=== PATIENT | male | born 1980 | race Caucasian/White ===

== ENCOUNTER 2021-01-06 05:58 | Day surgery (SDC) | payer BC ==
[2021-01-06] MEDS: Lactated Ringers 1,000 ML IV SCH ×2 (06:10→10:04)
[2021-01-06] MEDS ORDERED: Lidocaine 1% 4 ML ONE (06:54)
[2021-01-06] MEDS ORDERED: Lactated Ringers 1,000 ML ONE (06:54)
[2021-01-06] MEDS ORDERED: ceFAZolin 1 GM Vial ONE (06:54)
[2021-01-06] MEDS ORDERED: Ondansetron 4 MG/2 ML SDV ONE (06:54)
[2021-01-06] MEDS ORDERED: Propofol 200 MG/20 ML SDV ONE ×2 (06:55→06:59)
[2021-01-06] MEDS ORDERED: Midazolam 1 MG/ML 2 ML SDV ONE (06:55)
[2021-01-06] MEDS ORDERED: Scopolamine 1.5 MG Transdermal Patch TRDERM PRN (06:55)
[2021-01-06] MEDS ORDERED: fentaNYL 250 MCG/5 ML SDV ONE (06:56)
[2021-01-06] MEDS ORDERED: Ketorolac 30 MG/ML SDV ONE (06:56)
[2021-01-06] MEDS ORDERED: Ketamine 500 mg/10 ML MDV ONE (06:56)
[2021-01-06] MEDS ORDERED: Dexamethasone 4 MG/ML 5 ML MDV ONE (06:56)
[2021-01-06] MEDS ORDERED: Sodium Chloride 0.9% 10 ML Syringe FLUSH PRN (07:00)
[2021-01-06] MEDS ORDERED: Lidocaine 1%/Sod Bicarbonate in NS 8.4% 1 ML Syringe IDERM PRN (07:00)
[2021-01-06] MEDS ORDERED: HYDROmorphone 0.5 MG/0.5 ML Syringe ONE ×2 (07:18→07:44)
[2021-01-06] MEDS: Bupivacaine 0.25% 10 ML SDV ONE ×2 (08:07→08:42)
[2021-01-06] MEDS ORDERED: HYDROmorphone 0.5 MG/0.5 ML Syringe IVPUSH PRN (08:23)
[2021-01-06] MEDS ORDERED: fentaNYL 100 MCG/2 ML SDV IVPUSH PRN (08:23)
[2021-01-06] MEDS ORDERED: Ondansetron 4 MG/2 ML SDV IVPUSH PRN (08:23)
--- NOTE | 2021-01-06 08:28 | PCM.PREANE ---
Preanesthetic Assessment - Procedure Proposed Procedure: ORIF right Lateral Tibial Plateau Fracture - Anesthesia/Transfusion/Family Hx Anesthesia History: Prior Anesthesia Without Reaction Family History of Anesthesia Reaction: No - Review of Systems General: No Symptoms Pulmonary: No Symptoms, Other (Borderline sleep apnea, CPAP at home, uses inconsistently. ) Cardiovascular: No Symptoms, Other (Borderline hypertension, using a home journal to track BP. ) Gastrointestinal: No Symptoms Neurological: Dizziness (Motion Sickness ) Other: Reports: Depression, Anxiety (Panic Attacks) - Physical Assessment NPO Status Date: 01/05/21 NPO Status Time: 21:00 Vital Signs: Last Vital Signs Temp 36.2 C 01/06/21 06:05 Pulse 95 01/06/21 06:05 Resp 16 01/06/21 06:05 BP 137/86 01/06/21 06:31 Pulse Ox 95 01/06/21 06:05 Height: 1.83 m Weight: 90.718 kg ASA Class: 2 Mental Status: Alert & Oriented x3 Airway Class: Mallampati = 2 Dentition: Reports: [place](s) Thyro-Mental Finger Breadths: 3 Mouth Opening Finger Breadths: 3 ROM/Head Extension: Full Lungs: Clear to Auscultation, Normal Respiratory Effort Cardiovascular: Regular Rate, Regular Rhythm - Lab Values: Laboratory Last Values MRSA (PCR) Negative 01/03/21 09:55 - Allergies Allergies/Adverse Reactions: Allergies Allergy/AdvReac Type Severity Reaction Status Date / Time bupropion [From Wellbutrin] AdvReac Anxiety Verified 01/06/21 06:24 - Anesthesia Plan Pre-Op Medication Ordered: Other (Scopalamine Patch) - Acknowledgements Anesthesia Type Planned: General Anesthesia (LMA), Regional Block (Post Operative if needed for pain control. ) Pt an Appropriate Candidate for the Planned Anesthesia: Yes Alternatives and Risks of Anesthesia Discussed w Pt/Guardian: Yes Pt/Guardian Understands and Agrees with Anesthesia Plan: Yes PreAnesthesia Questionnaire HEENT History: Reports: Allergic Rhinitis, Impaired Vision Cardiovascular History: Reports: None Respiratory History: Reports: Sleep Apnea Gastrointestinal History: Reports: None Genitourinary History: Reports: None MECHANICAL PLANNER History: Reports: None Neurological History: Reports: None Psychiatric History: Reports: Anxiety, Depression Endocrine/Metabolic History: Reports: None Hematologic History: Reports: None Immunologic History: Reports: None Oncologic (Cancer) History: Reports: None Dermatologic History: Reports: None - Infectious Disease History Infectious Disease History: Reports: None - Past Surgical History Head Surgeries/Procedures: Reports: None Cardiovascular Surgical History: Reports: None Respiratory Surgical History: Reports: None GI Surgical History: Reports: None Male Surgical History: Reports: Vasectomy Endocrine Surgical History: Reports: None Neurological Surgical History: Reports: None Musculoskeletal Surgical History: Reports: Other (See Below) Other Musculoskeletal Surgeries/Procedures:: left leg fracture with repair Oncologic Surgical History: Reports: None Dermatological Surgical History: Reports: None - SUBSTANCE USE Tobacco Use Status *Q: Current Every Day Tobacco User Recreational Drug Use History: No - HOME MEDS Home Medications: Home Meds Acetaminophen/HYDROcodone [[place] 325-5 MG] 1 - 2 tab PO Q6H PRN #30 tablet 01/05/21 [Rx] Aspirin [Aspirin EC] 325 mg PO BID #84 tab 01/05/21 [Rx] Cyclobenzaprine [Flexeril] 10 mg PO TID PRN 01/05/21 [History] Desvenlafaxine [Desvenlafaxine ER] 50 mg PO DAILY 01/05/21 [History] - CURRENT (IN HOUSE) MEDS Current Meds: Current Medications Lactated Ringer's (Ringers, Lactated) 1,000 mls @ 125 mls/hr IV ASDIRECTED CLIFF Stop: 01/06/21 23:00 Last Admin: 01/06/21 06:10 Dose: 125 mls/hr Documented by: Lidocaine/Sodium Bicarbonate (Buffered Lidocaine 1% In Ns 8.4%) 0.25 ml IDERM ONETIME PRN PRN Reason: Prior to IV Start Stop: 01/06/21 18:00 Last Admin: 01/06/21 06:10 Dose: 0.25 ml Documented by: Scopolamine (Transderm-Scop) 1.5 mg TRDERM Q72H PRN PRN Reason: Nausea Last Admin: 01/06/21 07:05 Dose: 1.5 mg Documented by: Sodium Chloride (Saline Flush) 10 ml FLUSH ASDIRECTED PRN PRN Reason: Keep Vein Open Stop: 01/06/21 18:00 Discontinued Medications Bupivacaine HCl (Sensorcaine-Mpf 0.25%) Confirm Administered Dose 20 ml .ROUTE .[facility] ONE Stop: 01/06/21 06:18 Last Admin: 01/06/21 08:07 Dose: 20 ml Documented by: Cefazolin Sodium (Ancef) Confirm Administered Dose 2 gm .ROUTE .[facility] ONE Stop: 01/06/21 06:55 Dexamethasone (Dexamethasone) Confirm Administered Dose 20 mg .ROUTE .[facility] ONE Stop: 01/06/21 06:57 Fentanyl (Sublimaze) Confirm Administered Dose 250 mcg .ROUTE .[facility] ONE Stop: 01/06/21 06:57 Hydromorphone HCl (Dilaudid) Confirm Administered Dose 0.5 mg .ROUTE .[facility] ONE Stop: 01/06/21 07:19 Hydromorphone HCl (Dilaudid) Confirm Administered Dose 0.5 mg .ROUTE .[facility] ONE Stop: 01/06/21 07:45 Lidocaine HCl (Xylocaine-Mpf 1%) Confirm Administered Dose 4 mls @ as directed .ROUTE .[facility] ONE Stop: 01/06/21 06:55 Lactated Ringer's (Ringers, Lactated) Confirm Administered Dose 1,000 mls @ as directed .ROUTE .[facility] ONE Stop: 01/06/21 06:55 Ketamine HCl (Ketalar) Confirm Administered Dose 500 mg .ROUTE .[facility] ONE Stop: 01/06/21 06:57 Ketorolac Tromethamine (Toradol) Confirm Administered Dose 30 mg .ROUTE .[facility] ONE Stop: 01/06/21 06:57 Midazolam HCl (Versed 1 Mg/Ml) Confirm Administered Dose 2 mg .ROUTE .[facility] ONE Stop: 01/06/21 06:56 Miscellaneous Medication (Phenylephrine 1 Mg/10 Ml-Ns) Confirm Administered Dose 1 mg .ROUTE .[facility] ONE Stop: 01/06/21 08:09 Ondansetron HCl (Zofran) Confirm Administ[facility] D[facility] Stop: 01/06/21 06:55 Propofol (Diprivan 20 Ml) Confirm Administered Dose 400 mg .ROUTE .[facility] ONE Stop: 01/06/21 06:56 Propofol (Diprivan 20 Ml) Confirm Administered Dose 200 mg .ROUTE .[facility] ONE Stop: 01/06/21 07:00
[2021-01-06] MEDS ORDERED: fentaNYL 100 MCG/2 ML SDV ONE ×2 (08:45→09:10)
[2021-01-06] MEDS ORDERED: Lidocaine 1% 2 ML ONE (08:49)
--- NOTE | 2021-01-06 09:11 | CR ---
Right knee: 8 fluoroscopic spot views of the right knee were obtained. Findings: Study shows placement of plate and screws along the lateral side of the proximal tibial plateau. Fluoroscopy time is given as 26.4 seconds. Impression: 1. Operative change as noted above. Diagnostic code #2
[2021-01-06] MEDS ORDERED: Ropivacaine 0.5% 5 MG/ML 30 ML SDV ONE (09:19)
--- NOTE | 2021-01-06 09:34 | PCM.POSTAN ---
POST ANESTHESIA ASSESSMENT - MENTAL STATUS Mental Status: Alert, Oriented - VITAL SIGNS Vital Signs: Last Vital Signs Temp 36.2 C 01/06/21 09:11 Pulse 77 01/06/21 09:11 Resp 10 L 01/06/21 09:11 BP 156/108 H 01/06/21 09:11 Pulse Ox 95 01/06/21 09:11 - RESPIRATORY Respiratory Status: Respiratory Rate WNL, Airway Patent, O2 Saturation Stable, Supplemental Oxygen - CARDIOVASCULAR CV Status: Pulse Rate WNL, Blood Pressure Stable - GASTROINTESTINAL GI Status: No Symptoms - PAIN Pain Score: 0 - POST OP HYDRATION Hydration Status: Adequate & Stable
--- NOTE | 2021-01-06 09:36 | PCM.SN.2 ---
- Free Text/Narrative Note: Right selective femoral nerve block at the adductor canal for post-procedure pain control under US guidance requested by Dr. Travis. Date: 01/06/21 Time Out: 921 Start:921 End: 925 Chart reviewed. Consent signed. Questions answered. Appropriate monitors applied. Time out performed. Right mid-shaft femur identified with ultrasound, scanning medially of femur, the femoral artery in the adductor canal visualized, and the femoral nerve located laterally to the artery. The skin was prepped lateral to the ultrasound probe with chlorahexadine times two. The 21ga 4 insulated block needle was inserted under direct ultrasound guidance into the adductor canal. 15mL of 0.5% ropivacaine with 5 mL of Lidocaine 5% 1:200,000 epinephrine was injected circumferentially around the nerve with intermittent negative aspiration noted. Patient tolerated the procedure well. Sterile technique noted along with sterile gloves, mask, and sterile probe cover. See picture on progress note and vital signs on nurses notes. Block completed in PACU. Evert Howard CRNA
[2021-01-06] MEDS ORDERED: Acetaminophen/HYDROcodone 325-5 MG Tab PO PRN (10:53)
--- NOTE | 2021-01-06 12:19 | PCM48HPAN ---
Post Anesthesia Note - EVALUATION WITHIN 48HRS OF ANESTHETIC Vital Signs in Normal Range: Yes Patient Participated in Evaluation: Yes Respiratory Function Stable: Yes Airway Patent: Yes Cardiovascular Function Stable: Yes Hydration Status Stable: Yes Pain Control Satisfactory: Yes Nausea and Vomiting Control Satisfactory: Yes Mental Status Recovered: Yes Vital Signs: Last Vital Signs Temp 36.2 C 01/06/21 10:25 Pulse 81 01/06/21 11:30 Resp 15 01/06/21 11:30 BP 136/85 01/06/21 11:30 Pulse Ox 92 L 01/06/21 11:30
--- NOTE | 2021-01-16 15:40 | PCM.OPNOTE ---
- General Post-Op/Procedure Note Date of Surgery/Procedure: 01/06/21 Operative Procedure(s): open reduction internal fixation of right lateral tibial plateau fracture Pre Op Diagnosis: depressed right lateral tibial plateau fracture Post-Op Diagnosis: Same Anesthesia Technique: General LMA, Local Primary Surgeon: Jonas Travis Anesthesia Provider: Darshana Howard Appraisal Manager: Ana Disla EBL in mLs: 25 Complications: None Condition: Good
--- NOTE | 2021-01-16 16:54 | OR ---
DATE OF OPERATION: 01/06/2021 SURGEON: Jonas Travis MD OPERATION PERFORMED: Open reduction internal fixation of right lateral tibial plateau fracture. PREOPERATIVE DIAGNOSIS: Depressed right lateral tibial plateau fracture. POSTOPERATIVE DIAGNOSIS: Depressed right lateral tibial plateau fracture. ANESTHESIA: General LMA with local. ANESTHESIA PROVIDER: Haylee Dee. MOUNTAIN SERVICES MANAGER: Ana Disla PA-C ESTIMATED BLOOD LOSS: 25 mL. COMPLICATIONS: None. CONDITION: Stable. DESCRIPTION OF PROCEDURE: The patient was identified in the preoperative holding area. Proper site was marked and identified by the surgeon. The patient was taken back to the operating theater where after adequate anesthesia, the patient's right lower extremity had a nonsterile tourniquet applied. It was then sterilely prepped and draped in the usual sterile fashion. OR time-out was performed. The patient received 2 g IV Ancef. Right lower extremity was then exsanguinated. Tourniquet was inflated to 250 mmHg. A curvilinear incision was then made over the lateral tibial plateau near the anterior crest. This was taken down to the IT band. This was then incised along its fiber lengths. It was brought both anterior and posteriorly and a submeniscal arthrotomy was created. Hematoma was then evacuated. At this time, it was noted that the patient's fracture line was significantly posterior, so an osteotomy was performed to the anterior portion of the tibial plateau to be able to reach and tamp up the posterior portion. At this time using an osteotome, an osteotomy was created of the very lateral edge of the lateral tibial plateau. Once this was completed, I was able to see all the way posteriorly. I used a bone tamp to get an anatomic reduction of the depressed posterior fragments of the lateral tibial plateau. Once this was completed, crushed cancellous bone chips were then tamped to help wrap and fixate and give proper support to the tibial plateau depressed portion posteriorly. It was found to have adequate anatomic reduction under direct visualization. The osteotomy site was then closed and a [place] titanium proximal lateral tibial locking plate was then placed under C-arm fluoroscopy on both AP and lateral views and was found to have adequate reduction. A large [id number] reduction clamp was placed across the knee joint to compress the plate as well as the osteotomy site. A K-wire was then placed and then 2 cortical screws were placed in the shaft and found to be in adequate position. The plate was found to be in adequate position, both AP and lateral views. Five screws were placed proximally, 1 nonlocking and 4 locking screws and was found to be adequately fixated as well as positioned. One more locking screw was placed distally in the shaft. Final C-arm fluoroscopy showed anatomic reduction as well as direct visualization. Meniscus was then repaired to the capsule using an 0 Vicryl after adequate saline was irrigated through the knee. #0 Vicryl was used for closure of the IT band and capsule. 2-0 Vicryl was used subcutaneously and melina were used for closure of the skin. The patient had a sterile soft dressing applied and a hinged knee brace and was sent to the PACU in stable condition. MMODAL /[id number]
== END 2021-01-06 13:49 | disposition home or self-care (01) ==
LOC: JD.SDS 05:58
PROVIDERS: ATTEND Orthopaedic Surgery
DX: S82.121A Displaced fracture of lateral condyle of right tibia, initial encounter for closed fracture (principal); F17.220 Nicotine dependence, chewing tobacco, uncomplicated; R03.0 Elevated blood-pressure reading, without diagnosis of hypertension; G47.33 Obstructive sleep apnea (adult) (pediatric); Z98.890 Other specified postprocedural states; Z88.8 Allergy status to other drugs, medicaments and biological substances; Z79.899 Other long term (current) drug therapy; Z79.82 Long term (current) use of aspirin; W11.XXXA Fall on and from ladder, initial encounter
CPT/HCPCS: 01392; 64450; 76000; 76000-26; 87641; A9270-GY; C1713; J0690; J1100; J1170; J1885; J2250; J2370; J2405; J2704; J2795; J3010; J3490; J7120